=== PATIENT | female | born 1990 | race Caucasian/White ===

== ENCOUNTER 2019-01-03 22:54 | Inpatient (IN) | payer OTHER ==
[2019-01-04] MEDS: morphine 4 MG/ML VIAL IV (01:15)
[2019-01-04 02:03] LABS: ADD MAN DIFF? NO
[2019-01-04 02:05] LABS: BASOPHIL # 0.1 10^3/ul (0.0-0.1); BASOPHILS % 0.5 % (0.0-2.0); EOSINOPHILS # 0.2 10^3/ul (0.0-0.5); EOSINOPHILS % 2.5 % (0.0-7.0); HEMOGLOBIN 11.3 g/dl (12.0-16.0); LYMPHOCYTES # 2.5 10^3/ul (0.8-2.9); LYMPHOCYTES % 27.2 % (15.0-51.0); MEAN CORPUSCULAR HEMOGLOBIN 25.5 pg (29.0-33.0); MEAN CORPUSCULAR HGB CONC 33.2 g/dl (32.0-37.0); MEAN CORPUSCULAR VOLUME 76.7 fl (82.0-101.0); MEAN PLATELET VOLUME 9.2 fl (7.4-10.4); MONOCYTE # 0.8 10^3/ul (0.3-0.9); MONOCYTES % 8.8 % (0.0-11.0); NEUTROPHIL # 5.6 10^3/ul (1.6-7.5); NEUTROPHILS % 60.7 % (39.0-77.0); PLATELET COUNT 447 10^3/UL (140-415); RED BLOOD COUNT 4.43 10^6/ul (4.20-5.40); RED CELL DISTRIBUTION WIDTH 12.7 % (11.5-14.5)
[2019-01-04 02:05] LABS: WHITE BLOOD COUNT 9.3 10^3/ul (4.8-10.8)
[2019-01-04] MEDS: PIPER-TAZO 3.375 GM IV (PMX) 100 ML IVPB ×5 (02:13→20:28)
[2019-01-04] MEDS: SODIUM CHLORIDE 0.9% 1L BAG IV* (02:14)
[2019-01-04 02:24] LABS: ALANINE AMINOTRANSFERASE 62 IU/L (13-69); ALBUMIN 4.1 g/dl (3.3-4.9); ALKALINE PHOSPHATASE 107 IU/L (42-121); ANION GAP 9 (5-13); ASPARTATE AMINO TRANSFERASE 81 IU/L (15-46); BILIRUBIN,INDIRECT 0.1 mg/dl (0-1.1); BILIRUBIN,TOTAL 0.1 mg/dl (0.2-1.3); BLOOD UREA NITROGEN 14 mg/dl (7-20); CALCIUM 9.4 mg/dl (8.4-10.2); CARBON DIOXIDE 28 mmol/L (21-31); CHLORIDE 104 mmol/L (97-110); Estimated GFR > 60 mL/min (>60); GLUCOSE 90 mg/dl (70-220); POTASSIUM 3.9 mmol/L (3.5-5.1); SODIUM 141 mmol/L (135-144); TOTAL PROTEIN 7.5 g/dl (6.1-8.1)
[2019-01-04 02:25] LABS: LACTIC ACID 0.9 mmol/L (0.5-2.0)
[2019-01-04 02:25] LABS: INR 0.91; PROTIME 12.4 Sec (11.9-14.9)
[2019-01-04 02:26] LABS: PARTIAL THROMBOPLASTIN TIME 24.7 Sec (23.0-35.0)
[2019-01-04] MEDS: VANCOMYCIN 1 GM (PMX) 250 ML IVPB (02:53)
[2019-01-04] MEDS ORDERED: ONDANSETRON 4 MG INJ IV ×3 (03:00→19:00)
[2019-01-04] MEDS ORDERED: ACETAMINOPHEN 325 MG TAB PO ×2 (03:00→04:00)
[2019-01-04 03:35] LABS: URINE BLOOD (Dip) POC 1+ (NEGATIVE); URINE GLUCOSE (Dip) POC Negative (NEGATIVE); URINE KETONES (Dip) POC Negative (NEGATIVE); URINE LEUKOCYTE EST (Dip) POC Trace (NEGATIVE); URINE NITRITE (Dip) POC Positive (NEGATIVE); URINE TOTAL PROTEIN POC Negative (NEGATIVE)
[2019-01-04] MEDS ORDERED: ALBUTEROL/IPRATROPIUM (NEB) 3 ML AMP HHN (04:00)
[2019-01-04] MEDS: HYDROCODONE/APAP (5/325) TAB PO ×2 (04:16→12:49)
[2019-01-04] MEDS: SOD CHLORIDE 0.9% 1,000 ML IV ×4 (04:17→23:46)
[2019-01-04 05:59] LABS: LACTIC ACID 0.8 mmol/L (0.5-2.0)
[2019-01-04 08:51] LABS: IRON 25 ug/dl (35-150)
[2019-01-04 08:55] LABS: LACTIC ACID 1.3 mmol/L (0.5-2.0)
[2019-01-04] MEDS: VANCOMYCIN 1 GM 250 ML IVPB ×2 (08:55→17:18)
[2019-01-04 09:00] LABS: % IRON SATURATION 11 % SAT (22-52); TOTAL IRON BINDING CAPACITY 234 ug/dl (241-421)
[2019-01-04] MEDS ORDERED: VANCOMYCIN IV PER PHARMACY XX (09:00)
[2019-01-04] MEDS ORDERED: FENTAnyl 50 MCG/ML VIAL (18:23)
[2019-01-04] MEDS ORDERED: DEXAMETHASONE 4 MG/ML 5 ML INJ (18:34)
[2019-01-04] MEDS ORDERED: ONDANSETRON 4 MG INJ (18:35)
[2019-01-04] MEDS ORDERED: PROPOFOL 20 ML (18:49)
[2019-01-04] MEDS ORDERED: hydrALAzine 20 MG INJ IV (19:00)
[2019-01-04] MEDS ORDERED: EPHEDrine SULFATE 50 MG/5 ML SYG IV (19:00)
[2019-01-04] MEDS ORDERED: HYDROmorphONE 1 MG/5 ML IV SYRINGE IV ×2 (19:00)
[2019-01-04] MEDS ORDERED: MEPERIDINE 25 MG INJ IV (19:00)
[2019-01-04] MEDS ORDERED: DIPHENHYDRAMINE 50 MG INJ IV (19:00)
[2019-01-04] MEDS ORDERED: FENTAnyl 50 MCG/ML VIAL IV ×3 (19:00)
[2019-01-04] MEDS ORDERED: LABETALOL HCL 20MG INJ IV (19:00)
[2019-01-04] MEDS ORDERED: ALBUTEROL 0.083% (NEB) 2.5 MG/3 ML AMP HHN (19:00)
[2019-01-04] MEDS ORDERED: METOCLOPRAMIDE 10 MG INJ IV (19:00)
[2019-01-04 19:14] LABS: ADD MAN DIFF? NO
[2019-01-04 19:15] LABS: WHITE BLOOD COUNT 9.2 10^3/ul (4.8-10.8)
[2019-01-04 19:15] LABS: BASOPHILS % 0.4 % (0.0-2.0); EOSINOPHILS # 0.3 10^3/ul (0.0-0.5); EOSINOPHILS % 3.3 % (0.0-7.0); HEMATOCRIT 31.2 % (37.0-47.0); LYMPHOCYTES # 1.8 10^3/ul (0.8-2.9); LYMPHOCYTES % 19.8 % (15.0-51.0); MEAN CORPUSCULAR HEMOGLOBIN 25.4 pg (29.0-33.0); MEAN CORPUSCULAR HGB CONC 32.1 g/dl (32.0-37.0); MEAN CORPUSCULAR VOLUME 79.2 fl (82.0-101.0); MEAN PLATELET VOLUME 8.9 fl (7.4-10.4); MONOCYTE # 0.7 10^3/ul (0.3-0.9); MONOCYTES % 7.9 % (0.0-11.0); NEUTROPHIL # 6.3 10^3/ul (1.6-7.5); NEUTROPHILS % 68.1 % (39.0-77.0); PLATELET COUNT 408 10^3/UL (140-415); RED BLOOD COUNT 3.94 10^6/ul (4.20-5.40); RED CELL DISTRIBUTION WIDTH 12.6 % (11.5-14.5)
[2019-01-04] MEDS: HYDROmorphONE 1 MG/5 ML IV SYRINGE IV (19:20)
[2019-01-04] MEDS: morphine 2 MG INJ IV (20:28)
[2019-01-04] MEDS: ONDANSETRON 4 MG INJ IV (21:21)
[2019-01-05] MEDS: PIPER-TAZO 3.375 GM IV (PMX) 100 ML IVPB ×4 (00:09→17:16)
[2019-01-05] MEDS: VANCOMYCIN 1 GM 250 ML IVPB ×2 (01:14→09:06)
[2019-01-05] MEDS: HYDROCODONE/APAP (5/325) TAB PO ×3 (02:27→17:16)
[2019-01-05 05:56] LABS: ADD MAN DIFF? NO
[2019-01-05 06:04] LABS: BASOPHILS % 0.2 % (0.0-2.0); HEMATOCRIT 24.4 % (37.0-47.0); HEMOGLOBIN 8.1 g/dl (12.0-16.0); LYMPHOCYTES # 0.8 10^3/ul (0.8-2.9); LYMPHOCYTES % 13.5 % (15.0-51.0); MEAN CORPUSCULAR HEMOGLOBIN 26.1 pg (29.0-33.0); MEAN CORPUSCULAR HGB CONC 33.2 g/dl (32.0-37.0); MEAN CORPUSCULAR VOLUME 78.7 fl (82.0-101.0); MEAN PLATELET VOLUME 9.5 fl (7.4-10.4); MONOCYTE # 0.2 10^3/ul (0.3-0.9); MONOCYTES % 2.7 % (0.0-11.0); NEUTROPHILS % 83.3 % (39.0-77.0); PLATELET COUNT 376 10^3/UL (140-415); RED CELL DISTRIBUTION WIDTH 12.7 % (11.5-14.5)
[2019-01-05 06:41] LABS: ALANINE AMINOTRANSFERASE 53 IU/L (13-69); ALBUMIN 2.9 g/dl (3.3-4.9); ALBUMIN/GLOBULIN RATIO 1.11; ALKALINE PHOSPHATASE 65 IU/L (42-121); ANION GAP 4 (5-13); ASPARTATE AMINO TRANSFERASE 49 IU/L (15-46); BLOOD UREA NITROGEN 5 mg/dl (7-20); CALCIUM 8.3 mg/dl (8.4-10.2); CARBON DIOXIDE 26 mmol/L (21-31); CHLORIDE 109 mmol/L (97-110); CREATININE 0.44 mg/dl (0.44-1.00); Estimated GFR > 60 mL/min (>60); GLUCOSE 138 mg/dl (70-220); MAGNESIUM 1.9 mg/dl (1.7-2.5); PHOSPHORUS 2.9 mg/dl (2.5-4.9); POTASSIUM 3.9 mmol/L (3.5-5.1); SODIUM 139 mmol/L (135-144); TOTAL PROTEIN 5.5 g/dl (6.1-8.1)
[2019-01-05 08:42] LABS: VANCOMYCIN,TROUGH 8.1 ug/ml (10.0-20.0)
[2019-01-05] MEDS: SOD CHLORIDE 0.9% 1,000 ML IV ×2 (15:04→19:46)
[2019-01-05] MEDS: VANCOMYCIN HCL 1.25 GM in SOD CHLORIDE 0.9% 250 ML IVPB (18:19)
[2019-01-05] MEDS: OXYCODONE/ACETAMINOPHEN (5/325) TAB PO (21:00)
[2019-01-06] MEDS: PIPER-TAZO 3.375 GM IV (PMX) 100 ML IVPB ×4 (01:05→17:53)
[2019-01-06] MEDS: VANCOMYCIN HCL 1.25 GM in SOD CHLORIDE 0.9% 250 ML IVPB ×3 (01:14→22:12)
[2019-01-06] MEDS: SOD CHLORIDE 0.9% 1,000 ML IV (01:16)
[2019-01-06] MEDS: HYDROCODONE/APAP (5/325) TAB PO ×2 (06:01→20:51)
[2019-01-06 06:09] LABS: ADD MAN DIFF? NO
[2019-01-06 06:13] LABS: ABNORMAL IP MESSAGE 1; BASOPHILS % 0.4 % (0.0-2.0); EOSINOPHILS # 0.1 10^3/ul (0.0-0.5); EOSINOPHILS % 0.7 % (0.0-7.0); HEMATOCRIT 20.4 % (37.0-47.0); LYMPHOCYTES # 3.3 10^3/ul (0.8-2.9); LYMPHOCYTES % 29.6 % (15.0-51.0); MEAN CORPUSCULAR HEMOGLOBIN 26.5 pg (29.0-33.0); MEAN CORPUSCULAR HGB CONC 32.8 g/dl (32.0-37.0); MEAN CORPUSCULAR VOLUME 80.6 fl (82.0-101.0); MONOCYTE # 0.8 10^3/ul (0.3-0.9); MONOCYTES % 6.8 % (0.0-11.0); PLATELET COUNT 373 10^3/UL (140-415); RED BLOOD COUNT 2.53 10^6/ul (4.20-5.40); RED CELL DISTRIBUTION WIDTH 12.9 % (11.5-14.5)
[2019-01-06 06:13] LABS: WHITE BLOOD COUNT 11.3 10^3/ul (4.8-10.8)
[2019-01-06 06:19] LABS: HEMOGLOBIN 6.7 g/dl (12.0-16.0); POSITIVE DIFF @See below
[2019-01-06 06:20] LABS: PATH REVIEW? YES
[2019-01-06 09:36] LABS: IMMEDIATE SPIN CROSSMATCH 1 1
[2019-01-06] MEDS: SOD CHLORIDE 0.9% 250 ML IV* (13:31)
[2019-01-06] MEDS: SOD CHLORIDE 0.9% 100 ML (22:08)
[2019-01-06] MEDS: IOHEXOL 300MG/ML 150 ML BTL (22:08)
[2019-01-07] MEDS: HYDROCODONE/APAP (5/325) TAB PO ×2 (01:30→10:57)
[2019-01-07] MEDS: PIPER-TAZO 3.375 GM IV (PMX) 100 ML IVPB ×4 (01:30→17:40)
[2019-01-07 05:32] LABS: ADD MAN DIFF? NO
[2019-01-07 05:35] LABS: WHITE BLOOD COUNT 10.2 10^3/ul (4.8-10.8)
[2019-01-07 05:35] LABS: BASOPHIL # 0.1 10^3/ul (0.0-0.1); BASOPHILS % 0.7 % (0.0-2.0); EOSINOPHILS # 0.3 10^3/ul (0.0-0.5); EOSINOPHILS % 2.7 % (0.0-7.0); HEMATOCRIT 26.3 % (37.0-47.0); HEMOGLOBIN 8.7 g/dl (12.0-16.0); LYMPHOCYTES # 3.4 10^3/ul (0.8-2.9); LYMPHOCYTES % 33.9 % (15.0-51.0); MEAN CORPUSCULAR HEMOGLOBIN 26.6 pg (29.0-33.0); MEAN CORPUSCULAR HGB CONC 33.1 g/dl (32.0-37.0); MEAN CORPUSCULAR VOLUME 80.4 fl (82.0-101.0); MEAN PLATELET VOLUME 9.6 fl (7.4-10.4); MONOCYTE # 0.8 10^3/ul (0.3-0.9); MONOCYTES % 7.4 % (0.0-11.0); NEUTROPHIL # 5.6 10^3/ul (1.6-7.5); NEUTROPHILS % 54.7 % (39.0-77.0); PLATELET COUNT 411 10^3/UL (140-415); RED BLOOD COUNT 3.27 10^6/ul (4.20-5.40); RED CELL DISTRIBUTION WIDTH 13.7 % (11.5-14.5)
[2019-01-07 06:28] LABS: ANION GAP 7 (5-13); BLOOD UREA NITROGEN 3 mg/dl (7-20); CARBON DIOXIDE 29 mmol/L (21-31); CHLORIDE 105 mmol/L (97-110); Estimated GFR > 60 mL/min (>60); GLUCOSE 79 mg/dl (70-220); MAGNESIUM 1.9 mg/dl (1.7-2.5); PHOSPHORUS 3.8 mg/dl (2.5-4.9); POTASSIUM 3.6 mmol/L (3.5-5.1); SODIUM 141 mmol/L (135-144)
[2019-01-07 06:29] LABS: VANCOMYCIN,TROUGH 5.1 ug/ml (10.0-20.0)
[2019-01-07] MEDS: VANCOMYCIN HCL 1.25 GM in SOD CHLORIDE 0.9% 250 ML IVPB ×2 (06:39→14:17)
[2019-01-07 13:28] LABS: INR 0.95; PROTIME 12.8 Sec (11.9-14.9)
[2019-01-07] MEDS: OXYCODONE/ACETAMINOPHEN (5/325) TAB PO (17:53)
[2019-01-08] MEDS: OXYCODONE/ACETAMINOPHEN (5/325) TAB PO ×3 (01:39→20:31)
[2019-01-08] MEDS: NACL 0.9% 3 ML SYG IV ×2 (05:59)
[2019-01-08] MEDS: PIPER-TAZO 3.375 GM IV (PMX) 100 ML IVPB ×4 (05:59→18:27)
[2019-01-08] MEDS: MIDAZOLAM 1 MG/ML 2 ML INJ ×2 (10:00→10:34)
[2019-01-08] MEDS: SOD CHLORIDE 0.9% 500 ML (10:00)
[2019-01-08] MEDS: CEFAZOLIN 1 GM/50 ML (PMX) 50 ML IVPB ×2 (10:00→10:10)
[2019-01-08] MEDS ORDERED: SOD CHLORIDE 0.9% 1,000 ML IV (10:00)
[2019-01-08] MEDS: FENTAnyl 50 MCG/ML VIAL (10:20)
[2019-01-08] MEDS: LIDOCAINE 1%/EPI (1:100,000) (MDV) 20 ML (10:35)
[2019-01-08] MEDS: HEPARIN 1000 UNITS/ML 10 ML INJ (11:00)
[2019-01-08] MEDS: POLYMYXIN/BACITRACIN 1L IRRIG IRR (11:10)
[2019-01-08 12:18] LABS: ADD MAN DIFF? NO
[2019-01-08 12:21] LABS: BASOPHIL # 0.1 10^3/ul (0.0-0.1); BASOPHILS % 0.5 % (0.0-2.0); EOSINOPHILS # 0.1 10^3/ul (0.0-0.5); EOSINOPHILS % 1.2 % (0.0-7.0); HEMATOCRIT 29.8 % (37.0-47.0); HEMOGLOBIN 9.9 g/dl (12.0-16.0); LYMPHOCYTES # 1.9 10^3/ul (0.8-2.9); LYMPHOCYTES % 19.6 % (15.0-51.0); MEAN CORPUSCULAR HEMOGLOBIN 26.2 pg (29.0-33.0); MEAN CORPUSCULAR HGB CONC 33.2 g/dl (32.0-37.0); MEAN CORPUSCULAR VOLUME 78.8 fl (82.0-101.0); MEAN PLATELET VOLUME 8.9 fl (7.4-10.4); MONOCYTE # 0.5 10^3/ul (0.3-0.9); MONOCYTES % 4.9 % (0.0-11.0); NEUTROPHIL # 7.1 10^3/ul (1.6-7.5); NEUTROPHILS % 73.4 % (39.0-77.0); PLATELET COUNT 482 10^3/UL (140-415); RED BLOOD COUNT 3.78 10^6/ul (4.20-5.40)
[2019-01-08 12:21] LABS: WHITE BLOOD COUNT 9.7 10^3/ul (4.8-10.8)
[2019-01-08 17:13] LABS: CARCINOEMBRYONIC ANTIGEN 0.4 ng/ml (0.0-5.0)
[2019-01-08 18:35] LABS: ALPHA FETOPROTEIN 2.49 IU/L (0.00-7.21)
[2019-01-09] MEDS: PIPER-TAZO 3.375 GM IV (PMX) 100 ML IVPB ×4 (00:04→18:36)
[2019-01-09] MEDS: OXYCODONE/ACETAMINOPHEN (5/325) TAB PO (05:32)
[2019-01-09] MEDS: DOCUSATE SODIUM 100 MG CAP PO (06:18)
[2019-01-09] MEDS: POLYETHYLENE GLYCOL 17 GM PACKET PO (06:18)
[2019-01-09 06:26] LABS: ADD MAN DIFF? NO
[2019-01-09 06:33] LABS: WHITE BLOOD COUNT 8.1 10^3/ul (4.8-10.8)
[2019-01-09 06:33] LABS: BASOPHIL # 0.1 10^3/ul (0.0-0.1); BASOPHILS % 0.6 % (0.0-2.0); EOSINOPHILS # 0.3 10^3/ul (0.0-0.5); EOSINOPHILS % 4.2 % (0.0-7.0); HEMATOCRIT 28.8 % (37.0-47.0); HEMOGLOBIN 9.5 g/dl (12.0-16.0); LYMPHOCYTES # 2.5 10^3/ul (0.8-2.9); LYMPHOCYTES % 30.8 % (15.0-51.0); MEAN CORPUSCULAR HEMOGLOBIN 26.8 pg (29.0-33.0); MEAN CORPUSCULAR VOLUME 81.1 fl (82.0-101.0); MEAN PLATELET VOLUME 9.3 fl (7.4-10.4); MONOCYTE # 0.7 10^3/ul (0.3-0.9); MONOCYTES % 8.2 % (0.0-11.0); NEUTROPHIL # 4.5 10^3/ul (1.6-7.5); NEUTROPHILS % 55.6 % (39.0-77.0); PLATELET COUNT 479 10^3/UL (140-415); RED BLOOD COUNT 3.55 10^6/ul (4.20-5.40); RED CELL DISTRIBUTION WIDTH 14.1 % (11.5-14.5)
[2019-01-09 07:16] LABS: ANION GAP 9 (5-13); BLOOD UREA NITROGEN 9 mg/dl (7-20); CALCIUM 9.2 mg/dl (8.4-10.2); CARBON DIOXIDE 29 mmol/L (21-31); CHLORIDE 102 mmol/L (97-110); CREATININE 0.68 mg/dl (0.44-1.00); Estimated GFR > 60 mL/min (>60); GLUCOSE 96 mg/dl (70-220); MAGNESIUM 2.1 mg/dl (1.7-2.5); PHOSPHORUS 4.2 mg/dl (2.5-4.9); SODIUM 140 mmol/L (135-144)
== END 2019-01-09 20:25 | disposition home or self-care (01) | DRG 584 ==
LOC: FTE 22:54 → 2NE 01-06 21:35
PROC: 0HBT0ZX Excision of Right Breast, Open Approach, Diagnostic (ICD-10-PCS; principal; 2019-01-04 15:30)
PROC: 02H633Z Insertion of Infusion Device into Right Atrium, Percutaneous Approach (ICD-10-PCS; 2019-01-04 18:18)
PROC: B244YZZ Ultrasonography of Right Heart using Other Contrast (ICD-10-PCS; 2019-01-04 18:18)
PROC: 30233N1 Transfusion of Nonautologous Red Blood Cells into Peripheral Vein, Percutaneous Approach (ICD-10-PCS; 2019-01-04 18:18)
DX: C50.911 Malignant neoplasm of unspecified site of right female breast (principal); D62 Acute posthemorrhagic anemia; R59.0 Localized enlarged lymph nodes; D63.8 Anemia in other chronic diseases classified elsewhere; Z17.1 Estrogen receptor negative status [ER-]; N83.201 Unspecified ovarian cyst, right side; F12.90 Cannabis use, unspecified, uncomplicated
CPT/HCPCS: 36415; 36430; 36561; 71045; 71260; 71550; 74177; 76642; 76856; 76942; 80048; 80053; 80202; 81003; 81025; 82105; 82378; 82728; 83540; 83605; 83735; 84100; 84703; 85025; 85610; 85730; 86301; 86304; 86850; 86900; 86901; 86920; 87040; 87070; 87075; 87102; 88307; 88341; 88342; 90686; 93005; 93306; 96365; 96375; 99285-25